=== PATIENT | male | born 2000 ===

== ENCOUNTER → 2024-02-12 | Outpatient (CLI) | payer OTHER ==
[2024-02-12 17:41] LABS: Anion Gap 12 mmol/L (3-11); Blood Urea Nitrogen 16 mg/dL (8-24); Bun/Creatinine Ratio 15.7 (12.0-20.0); CHOL/HDL RATIO 2.6; CO2, Blood 27 mmol/L (21-32); Calcium, Blood 9.4 mg/dL (8.5-10.1); Chloride, Blood 105 mmol/L (98-108); Cholesterol 158 mg/dL (50-200); Creatinine, Blood 1.02 mg/dL (0.60-1.20); Glomerular Filtration Rate 106 (60-); Glucose, Blood 95 mg/dL (70-99); HDL Cholesterol 60 mg/dL (>39); LDL/HDL RATIO 1.3; Low Density Lipoprotein Chol 76 mg/dL (0-110); Potassium, Blood 4.1 mmol/L (3.5-5.5); Sodium, Blood 140 mmol/L (136-145); Triglycerides 112 mg/dL (30-140); Very Low Density Lipoprot Chol 22 mg/dL (6-28)
[2024-02-16 06:44] LABS: ESTRADIOL BY IMMUNOASSAY 25 pg/mL
== END | disposition home or self-care (01) ==
LOC: LAB SHORT 13:46 → LAB 13:46
PROVIDERS: Hospitalist
DX: Z13.220 Encounter for screening for lipoid disorders (principal); N62 Hypertrophy of breast
CPT/HCPCS: 80048; 80061; 82670; 83002; 84443